=== PATIENT | male | born 1950 | race Two or more races ===

== ENCOUNTER 2021-01-22 10:34 | Outpatient (CLI) | payer OTHER | END 2021-01-22 10:38 | disposition home or self-care (01) | LOC: LAB 10:34 | PROVIDERS: ATTEND Internal Medicine | DX: R76.8 Other specified abnormal immunological findings in serum (principal) ==

== ENCOUNTER 2024-06-11 10:19 | Outpatient (CLI) | payer OTHER | END 2024-06-11 10:29 | disposition home or self-care (01) | LOC: RAD 10:19 | PROVIDERS: ATTEND Physical Medicine & Rehabilitation | DX: M54.59 Other low back pain (principal) ==